=== PATIENT | male | born 1945 | race Caucasian/White ===

== ENCOUNTER 2021-08-26 07:00 | Emergency (ER) | payer MEDICARE, MEDICAID ==
[2021-08-26] MEDS ORDERED: Sodium Chloride 0.9% 1,000 ML IV SCH ×2 (07:15→09:30)
[2021-08-26] MEDS ORDERED: Acetaminophen 325 MG Tab PO ONE (07:39)
[2021-08-26 08:04] LABS: CORONAVIRUS COVID-19 NAA NEGATIVE (NEGATIVE)
[2021-08-26] MEDS ORDERED: Sodium Chloride 0.9% 10 ML Syringe FLUSH ONE ×2 (10:22→10:55)
[2021-08-26] MEDS ORDERED: Iopamidol 755 Mg/ML 100 ML Bottle IVPUSH ONE (10:22)
[2021-08-26] MEDS ORDERED: Sodium Chloride 0.9% 100 ML IV SCH (10:30)
== END 2021-08-26 11:46 ==
LOC: JD.ED 07:00
DX: S00.83XA Contusion of other part of head, initial encounter (principal); E87.1 Hypo-osmolality and hyponatremia; E04.1 Nontoxic single thyroid nodule; R94.31 Abnormal electrocardiogram [ECG] [EKG]; J44.9 Chronic obstructive pulmonary disease, unspecified; Z88.0 Allergy status to penicillin; Z79.899 Other long term (current) drug therapy; Z20.822 Contact with and (suspected) exposure to COVID-19; W18.30XA Fall on same level, unspecified, initial encounter
CPT/HCPCS: 0240U; 36415; 70450; 71045; 71275; 72125; 80053; 80178; 81001; 82947; 83735; 83880; 83930; 85007; 85027; 85379; 85610; 85730; 86140; 87040; 99285; A9270; J7030; Q9967

== ENCOUNTER 2022-12-07 14:35 | Emergency (ER) | payer MEDICARE, MEDICAID ==
[2022-12-07 15:47] LABS: BASOPHILS ABSOLUTE AUTO 0.01 K/mm3 (0.01-0.08); BASOPHILS PERCENT AUTO 0.1 % (0.1-1.2); EOSINOPHILS ABSOLUTE AUTO 0.14 K/mm3 (0.04-0.54); EOSINOPHILS PERCENT AUTO 1.1 (0.8-7.0); HEMATOCRIT 37.8 % (40.1-51.0); IMMATURE GRAN ABSOLUTE AUTO 0.03 K/mm3 (0.00-0.10); IMMATURE GRAN PERCENT AUTO 0.2 % (<=1.0); LYMPHOCYTES ABSOLUTE AUTO 0.69 K/mm3 (1.32-3.57); LYMPHOCYTES PERCENT AUTO 5.6 % (21.8-53.1); MEAN CORPUSCULAR HEMOGLOBIN 30.4 pg (25.7-32.2); MEAN CORPUSCULAR HGB CONC 31.7 g/dl (32.2-35.5); MEAN CORPUSCULAR VOLUME 95.7 fl (79.0-92.2); MONOCYTES ABSOLUTE AUTO 0.96 K/mm3 (0.30-0.82); MONOCYTES PERCENT AUTO 7.8 % (5.3-12.2); NEUTROPHILS ABSOLUTE AUTO 10.55 K/mm3 (1.78-5.38); NEUTROPHILS PERCENT AUTO 85.2 % (34.0-67.9); PLATELET COUNT,PLT 195 K/mm3 (163-337); RED BLOOD CELL COUNT 3.95 M/mm3 (4.63-6.08); WHITE BLOOD CELL COUNT,WBC 12.38 K/mm3 (4.23-9.07)
[2022-12-07 16:23] LABS: ALBUMIN 3.3 g/dl (3.4-5.0); ANION GAP 8.6 (5-15); BILIRUBIN TOTAL 0.3 mg/dL (0.2-1.0); BUN/CREATININE RATIO 18.6 (14-18); C-REACTIVE PROTEIN 1.5 mg/dL (<1.0); CALCIUM 9.1 mg/dL (8.5-10.1); CREATININE 0.7 mg/dL (0.7-1.3); EST CRCL DRUG DOSING (CG) 98.54 mL/min; POTASSIUM,K 4.6 mEq/L (3.5-5.1); PROTEIN TOTAL,TP 6.6 g/dl (6.4-8.2)
[2022-12-07 16:34] LABS: CORONAVIRUS COVID-19 NAA NEGATIVE (NEGATIVE); INFLUENZA A NAA NEGATIVE (NEGATIVE); RESPIRATORY SYNCYTIAL VIR NAA NEGATIVE (NEGATIVE)
[2022-12-07 17:18] LABS: APPEARANCE,URINE CLEAR (Clear); BILIRUBIN,URINE NEGATIVE (Negative); COLOR,URINE YELLOW (Yellow); GLUCOSE,URINE NEGATIVE (Negative); KETONES,URINE NEGATIVE (Negative); LEUKOCYTE ESTERASE,URINE NEGATIVE (Negative); NITRITE,URINE NEGATIVE (Negative); OCCULT BLOOD,URINE NEGATIVE (Negative); PH,URINE 6.5 (5.0-8.0); PROTEIN,URINE 1+ (Negative); UROBILINOGEN,URINE 0.2 (0.2-1.0)
[2022-12-07 17:24] LABS: BACTERIA,URINE RARE /hpf (FEW); HYALINE CASTS,URINE 0-5 /lpf (0-5); MUCUS,URINE RARE /hpf (FEW); RBC,URINE 0-5 /hpf (0-5); SQUAMOUS EPITHELIAL CELLS,UR 0-5 /hpf (0-5); WBC,URINE 0-5 /hpf (0-5)
[2022-12-07] MEDS ORDERED: Sodium Chloride 1 GM Tab PO ONE (17:56)
[2022-12-07] MEDS ORDERED: Furosemide 40 MG/4 ML VIAL IVPUSH ONE (17:56)
== END 2022-12-07 21:02 ==
LOC: JD.ED 14:35
DX: J81.0 Acute pulmonary edema (principal); J44.9 Chronic obstructive pulmonary disease, unspecified; Z88.0 Allergy status to penicillin; Z87.891 Personal history of nicotine dependence; Z20.822 Contact with and (suspected) exposure to COVID-19
CPT/HCPCS: 0241U; 36415; 70450; 71045; 80053; 80178; 81001; 83880; 85025; 86140; 93005; 96374; 99285; A9270; J1940